=== PATIENT | female | born 1950 | race Caucasian/White ===

== ENCOUNTER → 2020-08-13 | Outpatient (CLI) | payer OTHER ==
[~2020-08-13] MED LIST: CALCIUM 500 +1 EACH PO; DICLOFENAC SODI75 MG PO; GAMUNEX-C40 GM/400 IV; LEVOTHYROXIN0.088 MG PO; LEVOTHYROXINE75 MC1 PO; MAGNESIUM250 M1 PO; NEURONTIN 300300 M1 PO; OMEPRAZOLE 20 M20 M1 PO; PROZAC20 M1 PO; TOPAMAX 100 MG100 MG PO; TOPAMAX 25 MG T25 M1 PO; TOPAMAX100 MG PO; VITAMIN B12-FO1 EAC1 PO; VITAMIN D1000 UNI1 PO; VITAMIN D3250 MC2 PO; ZOCOR20 MG PO
[2020-08-13 09:30] VITALS: BP 129/55
--- NOTE | 2020-08-13 09:48 | NUR ---
VAT PLACED A PICC FOR IVIG PER ORDERS. A 4FRSLPICC PLACED RUABASILIC AND TIP IN THE SVC AND RELEASED FOR USE PER PROTOCOL
[2020-08-13 10:10] VITALS: BP 129/55
--- NOTE | 2020-08-13 14:04 | NUR ---
HERE FOR 1ST DAY OF 5 DAYS IVIG INFUSION FOR CIDP. PT HAS HAD THIS IN THE PAST, TYPICALLY YEARLY NOW FOR THE LAST FEW YEARS TO KEEP HER CIDP MANAGED. HAS HAD PICC LINES FOR THESE INFUSIONS IN THE PAST WELL D/T POOR VENOUS ACCESS. HAD BEEN GOING TO [facility] BUT IS SWITCHING TO OUR CLINIC SINCE THEIR INFUSION CLINIC IS CLOSED. REVIEWED TEACHING, WHAT TO EXPECT. PICC LINE PLACED BY THE VASCULAR ACCESS TEAM NURSE. NO PREMEDS ORDERED OR GIVEN, PT TYPICALLY DOES NOT TAKE ANY. PER HISTORY, PT STATES INFUSION NEEDS TO START SLOW, TITRATE UP TO MAX OF 140/H TO KEEP HER FROM HAVING A REACTION. GAMUNEX C STARTED AT 25/H, INCREASED RATE Q 30 MIN BY 25ML TILL REACHED 100ML/H X 30 MIN THEN INCREASED TO 140/H FOR REMAINDER OF VOLUME. TOTAL INFUSION TIME 3H, 45M. PT TOLERATED WELL, NO S/S REACTION. DISMISSED IN STABLE CONDITION; SCHEDULED TO RETURN AGAIN IN THE MORNING.
== END ==
LOC: OPONC 08:33
PROVIDERS: ATTEND Psychiatry & Neurology Neuromuscular Medicine
DX: G61.81 Chronic inflammatory demyelinating polyneuritis (principal)
CPT/HCPCS: 27000; 95000; 95001

== ENCOUNTER → 2020-08-14 | Outpatient (CLI) | payer OTHER ==
[2020-08-14 09:56] VITALS: BP 142/78
--- NOTE | 2020-08-14 13:32 | NUR ---
IN FOR GAMUNEX C FOR CIDP. STATED FEELING WELL. TITRATED GAMUNEX C PER PROTOCOL WITH A MAX RATE OF 140 ML/HR AND TOLERATED WELL. PICC SITE WNL. TO RETURN TOMORROW FOR 3RD OF 5 DAILY INFUSIONS. DISMISSED IN GOOD CONDITION.
== END ==
LOC: OPONC 10:02
PROVIDERS: ATTEND Psychiatry & Neurology Neuromuscular Medicine
DX: G61.81 Chronic inflammatory demyelinating polyneuritis (principal)
CPT/HCPCS: 95000; 95001

== ENCOUNTER → 2020-08-15 | Outpatient (CLI) | payer OTHER ==
[2020-08-15 10:15] VITALS: BP 145/83
[2020-08-15 13:15] VITALS: BP 149/81
--- NOTE | 2020-08-15 14:35 | NUR ---
HERE FOR DAY #3 OF 5, GAMUNEX C INFUSION. REPORTS DOING FINE DURING INFUSION THURSDAY AND THURSDAY BUT BEGAN HAVING A BAD HEADACHE LATER IN THE DAY YESTERDAY AND SLIGHT NAUSEA. BOTH MOSTLY RESOLVED BY THIS MORNING. ENCOURAGED PT TO TAKE SOME TYLENOL OR IBUPROFEN IN ADVANCE AND AFTER INFUSION TO MANAGE THIS. PT ALSO STATES SHE DOES HAVE AN ANTIEMETIC AT HOME IF NEEDED. ENCOURAGED HER WELL TO LET US KNOW IN THE MORNING HOW SHE DID AFTER TODAY'S INFUSION AND TO CALL DR. PATEL IF SHE HAS ANY CONCERNS. PT DID NOT SEEM CONCERNED ABOUT THIS SAYING SHE ALWAYS HAS A FEW SIDE EFFECTS. TODAY'S INFUSION TITRATED UP THE PAST TWO DAYS STARTING AT 25ML/H AND INCREASED BY 25ML/H Q 30 MIN UTIL 100ML/H THE INCREASED TO 140/H FOR THE LAST HALF OF THE INFUISON (200ML). HOWEVER, TODAY PT BEGAN HAVING CHILLS AFTER ABOUT 350 OUT OF 400ML WERE INFUSED. STOPPED INFUSION AND WARM BLANKETS APPLIED. NO CHANGE IN VS NOTED FROM BASELINE. CHILLS STOPPED WITHIN 15 MIN. INFUSION RESUMED AFTER 30 MIN AT 100ML/H UNTIL COMPLETED. PT TOLERATED WITHOUT ANY FURTHER S/S REACTION. PICC FLUSHED AND SECURED AND PT DISMISSED IN STABLE CONDITION. SCHEDULED TO RETURN AGAIN IN THE MORNING.
== END ==
LOC: OPONC 10:41
PROVIDERS: ATTEND Psychiatry & Neurology Neuromuscular Medicine
DX: G61.81 Chronic inflammatory demyelinating polyneuritis (principal)
CPT/HCPCS: 95000; 95001

== ENCOUNTER → 2020-08-16 | Outpatient (CLI) | payer OTHER ==
[2020-08-16 10:11] VITALS: BP 146/87
--- NOTE | 2020-08-16 14:20 | NUR ---
HERE FOR DAY 4 OF 5 GAMUNEX C INFUSION. REPORTS DOING WELL, NO HEADACHE OR NAUSEA THIS AM AND FELT FINE ALL AFTERNOON AFTER LEAVING YESTERDAY. DID TAKE SOME TYLENOL WHEN SHE GOT HOME AND PRETREATED TODAY WITH TYLENOL BEFORE SHE LEFT HOME. PICC SITE LOOKS GOOD, EXCELLENT BLOOD RETURN. STARTED GAMUNEX C AT 25ML/H AND TITRATED UP BY 25ML/H Q30MIN UNTIL REACHED MAX OF 125ML/H TODAY AND PT TOLERATED WITHOUT ANY CHILLS. DID GET A MILE HEADACHE BUT TOOK A SHORT NAP WHICH HELPED. DISMISSED IN STABLE CONDITION. WILL RETURN TOMORROW FOR HER LAST DOSE.
== END ==
LOC: OPONC 07:46
PROVIDERS: ATTEND Psychiatry & Neurology Neuromuscular Medicine
DX: G61.81 Chronic inflammatory demyelinating polyneuritis (principal)
CPT/HCPCS: 95000; 95001

== ENCOUNTER → 2020-08-17 | Outpatient (CLI) | payer OTHER ==
[2020-08-17 10:23] VITALS: BP 139/78
--- NOTE | 2020-08-17 15:16 | NUR ---
IN FOR 5TH AND LAST IVIG INFUSION FOR CIDP. PATIENT STATED FEELING WELL THIS AM, HOWEVER REPORTS SHE GETS A HEADACHE APPROXIMATELY WHEN THE 2ND BOTTLE IS HUNG. SHE TOOK HER OWN TYLENOL AND THIS WAS HELPFUL. TITRATED INFUSION WITH A MAX RATE OF 125ML/HR AND TOLERATED WELL. REMOVED PICC LINE WITH TIP INTACT. HELD PRESSURE FOR 5 MINUTES AND COVERED WITH GAUZE AND COBAN. DISMISSED IN STABLE CONDITION.
== END ==
LOC: OPONC 07:47
PROVIDERS: ATTEND Psychiatry & Neurology Neuromuscular Medicine
DX: G61.81 Chronic inflammatory demyelinating polyneuritis (principal)
CPT/HCPCS: 95000; 95001

== ENCOUNTER → 2021-06-21 | Outpatient (CLI) | payer OTHER ==
[~2021-06-21] MED LIST changes: +CALCIUM 600 +1 EAC8 PO; +LEVO-T100 MCG PO; +OMEPRAZOLE40 MG PO; +VITAMIN B-12250 MCG PO; +VITAMIN D325 MC3 PO
[2021-06-21 14:31] VITALS: BP 144/71
--- NOTE | 2021-06-21 15:30 | NUR ---
PICC PLACED FOR IVIG
--- NOTE | 2021-06-21 16:07 | NUR ---
PATIENT HERE FOR PICC LINE PLACEMENT AND WILL RETURN ON THURSDAY TO BEGIN IVIG THERAPY. VASCULAR ACCESS TEAM NOTIFIED AND PICC LINE PLACED. PATIENT HAS HAD PICC LINES IN THE PAST AND VOICED NO QUESTIONS REGARDING THE CARE. PATIENT DC'D IN STABLE CONDITION TO HOME AND WILL RETURN ON THURSDAY FOR INFUSION.
== END ==
LOC: OPONC 13:49
PROVIDERS: ATTEND Psychiatry & Neurology Neuromuscular Medicine
DX: G61.81 Chronic inflammatory demyelinating polyneuritis (principal)
CPT/HCPCS: 27000

== ENCOUNTER → 2021-06-24 | Outpatient (CLI) | payer OTHER ==
[2021-06-24 09:45] VITALS: BP 133/67
--- NOTE | 2021-06-24 13:20 | NUR ---
PT HERE FOR 1ST DAY OF IVIG THERAPY, PLANNED 5-DAY COURSE. PICC LINE WAS PLACED ON THURSDAY OF LAST WEEK--SITE LOOKS GOOD, PT DENIES ANY ISSUES WITH HER PICC. PT TOOK OWN TYLENOL AT HOME A PREMED THIS WORKED WELL FOR HER WITH HER LAST SERIES TO AVOID HEADACHES. TITRATED MEDICATION HAS WORKED WELL FOR HER IN THE PAST STARTING AT 25ML/H AND INCREASING BY 25ML/H EVERY 30 MINUTES TO MAX RATE OF 125/H. PT COMPLETE DINFUSION IN ABOUT 3H 3OMIN WITHOUT INCIDENT. NO S/S REACTION. DISMISSED IN STABLE CONDITION. SCHEDULED TO RETURN AGAIN IN THE MORNING.
== END ==
LOC: OPONC 09:38
DX: G61.81 Chronic inflammatory demyelinating polyneuritis (principal)
CPT/HCPCS: 95000; 95001

== ENCOUNTER → 2021-06-25 | Outpatient (CLI) | payer OTHER ==
[2021-06-25 09:20] VITALS: BP 144/63
--- NOTE | 2021-06-25 14:06 | NUR ---
PT HERE FOR DAY 2 OF 5 GAMUNEX INFUSIONS. DENIES ANY OVERNIGHT SYMPTOMS AFTER FIRST DOSE YESTERDAY. TOOK HER OWN TYLENOL A PRE-MED TO PREVENT HEADACHE. PICC LINE FLUSHES AND ASPIRATES WELL. VSS. TITRATED GAMUNEX PER PATIENT NORM. PT TOLERATED INFUSION WITH NO INCIDENCE. SCHEDULED TO RETURN TOMORROW FOR THIRD DOSE. LEFT UNIT IN STABLE CONDITION.
== END ==
LOC: OPONC 15:16
DX: G61.81 Chronic inflammatory demyelinating polyneuritis (principal)
CPT/HCPCS: 95000; 95001

== ENCOUNTER → 2021-06-26 | Outpatient (CLI) | payer OTHER ==
[2021-06-26 09:30] VITALS: BP 124/64
--- NOTE | 2021-06-26 13:00 | NUR ---
HERE FOR DAY #3 OF 5, GAMUNEX C INFUSION. REPORTS DOING WELL AND TOLERATING INFUSIONS WELL WITH NOTED SIDE EFFECT OF A HEADACHE LASTING A FEW HOURS EACH DAY WHICH PT REPORTS TOLERABLE AND EXPECTED. SHE IS MANAGING THESE WITH TYLENOL AND KEEPING HYDRATED. REPORTS THEY DO SUBSIDE AND IS NOT CONCERNED BY THEM. INFUSED TODAY AGAIN FOR TITRATION PROGRAM THAT WORKS WELL FOR THIS PATIENT STARTING AT 25ML/H AND INCREASING BY 25ML/H TO MAX RATE OF 125/H. COMPLETED IN JUST UNDER 3 1/2 HOURS TODAY. PICC WORKING WELL, SITE LOOKS GOOD. PT DISMISSED POST INFUSION IN STABLE CONDITION. SCHEDULED TO RETURN AGAIN IN THE MORNING.
== END ==
LOC: OPONC 12:49
DX: G61.81 Chronic inflammatory demyelinating polyneuritis (principal)
CPT/HCPCS: 95000; 95001

== ENCOUNTER → 2021-06-27 | Outpatient (CLI) | payer OTHER ==
[2021-06-27 09:35] VITALS: BP 119/74
--- NOTE | 2021-06-27 13:10 | NUR ---
HERE FOR DAY #4 OF 5, GAMUNEX C INFUSIONS FOR HER CIDP. REPORTS DOING WELL BUT CONTINUES TO HAVE HEADACHES POST INFUSION WHICH SHE IS MANAGING WITH TYLENOL AND SOME NAUSEA WHICH SHE IS JUST COPING WITH. BOTH PASS AFTER A FEW HOURS. PT STATES THAT SHE HAS HAD SOME RECENT GALLBLADDER ISSUES AND PERHAPS THAT IS FEEDING INTO THE NAUSEA BUT SHE HAD NOT NAUSEA PRIOR TO THIS WEEK WHEN HER INFUSIONS BEGAN. CALLED DR. 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 PT AGREEABLE WITH PLAN. TOLERATED TODAY'S INFUSION PER SAME TITRATION PROTOCOL. PT DOES NOT HAVE ANY IMMEDIATE REACTIONS--BOTH HEADACHE AND NAUSEA ARE DELAYED. DISMISSED IN STABLE CONDITION. WILL RETURN AGAIN FOR LAST DOSE TOMORROW.
== END ==
LOC: OPONC 12:00
DX: G61.81 Chronic inflammatory demyelinating polyneuritis (principal)
CPT/HCPCS: 95000; 95001

== ENCOUNTER → 2021-06-28 | Outpatient (CLI) | payer OTHER ==
[2021-06-28 09:35] VITALS: BP 155/66
--- NOTE | 2021-06-28 13:00 | NUR ---
HERE FOR FINAL DAY OF HER 5 DAY COURSE OF IV GAMUNEX. REPORTS HAVING A HEADACHE THIS MORNING BUT IS NOT OVERLY CONCERNED. STATES PICKED UP HER SCRIPT FOR ZOFRAN YESTERDAY AND STARTED THIS YESTERDAY WELL TOOK IT AND TYLENOL PREMED TODAY AT HOME BEFORE ARRIVAL. STATES WORKED WELL FOR THE NAUSEA. PT'S HEADACHE MOSTLY SUBSIDED WHILE HERE TODAY BUT WILL CONTINUE TYLENOL AT HOME PREVENTATIVE MEASURE. PULLED PICC LINE UPON COMPLETION OF THERAPY, DRESSING APPLIED, PT INSTRUCTED TO REMOVE THIS TOMORROW. DISMISSED IN STABLE CONDITION.
== END ==
LOC: OPONC 15:06
DX: G61.81 Chronic inflammatory demyelinating polyneuritis (principal)
CPT/HCPCS: 95000; 95001